=== PATIENT | male | born 1990 | race Caucasian/White ===

== ENCOUNTER 2025-03-24 23:57 | Emergency (ER) | payer BC, MEDICAID, OTHER ==
[~2025-03-24] VITALS: Ht 180.3 cm; Wt 88.5 kg
[2025-03-25] MEDS ORDERED: KETOROLAC TROMETHAMINE INJ 30 MG/ML VIAL ONE (01:46)
[2025-03-25] MEDS ORDERED: oxyCODONE/APAP (5/325 MG) 1 UDTAB TABLET ONE (01:46)
[2025-03-25] MEDS: KETOROLAC TROMETHAMINE INJ 30 MG/ML VIAL IM ONE (01:58)
[2025-03-25] MEDS: oxyCODONE/APAP (5/325 MG) 1 UDTAB TABLET PO ONE (01:58)
[2025-03-25] MEDS ORDERED: KETO10TA2 PO (03:02)
[2025-03-25 03:20] VITALS: BP 130/69; TEMP 97.6; O2SAT 97
== END 2025-03-25 03:20 | disposition home or self-care (01) ==
LOC: ER 03-25
DX: M79.604 Pain in right leg (principal)
CPT/HCPCS: 99283; 96372; 73590; J1885